=== PATIENT | male | born 1980 | race Caucasian/White ===

== ENCOUNTER 2017-07-23 12:41 | Emergency (ER) | payer BC ==
[~2017-07-23] VITALS: Ht 185.4 cm; Wt 92.0 kg
[2017-07-23 12:44] VITALS: Ht 185.4 cm; Wt 92.0 kg
[2017-07-23] MEDS ORDERED: GELATIN SPONGE 12-7MM ONE (12:54)
[2017-07-23 13:45] LABS: BASO % 0.4 %; BASO ABS # 0.04 K/uL (0-0.2); COMPLETE YES; EOS % 1.5 %; HEMATOCRIT 42.9 % (42-52); IG% 0.3 %; LYMPH % 23.9 %; LYMPH ABS # 2.14 K/uL (1.2-3.4); MEAN CELL VOLUME 89.2 fL (80-100); MEAN CORPUSCULAR HEMOGLOBIN 31.6 pg (25-34); MEAN CORPUSCULAR HGB CONC 35.4 g/dl (32-36); MEAN PLATELET VOLUME 10.4 fL (7.4-10.4); NEUT % 66.9 %; PLATELET COUNT 207 K/uL (130-400); RED BLOOD COUNT 4.81 M/uL (4.7-6.1); WHITE BLOOD COUNT 8.96 K/uL (4.8-10.8)
[2017-07-23 14:10] VITALS: BP 131/86; PULSE 81; TEMP 36.8; O2SAT 95
--- NOTE | 2017-07-23 16:28 | EMERGENCY ROOM VISIT NOTE ---
History Report prepared by Carlos: Darshana Mota Under the Supervision of: Nagi MedinaO. First contact with patient: 12:46 Chief Complaint: RECTAL BLEEDING Stated Complaint: RUPTURED HEMMRHOID, BLEEDING Nursing Triage Summary: worsening hemmroid bleeding like he is menstrating per pt over the past week History of Present Illness The patient is a 36 year old male who presents to the Emergency Room with complaints of intermittent rectal bleeding for the past 3 days. The patient has a history of hemorrhoids. He denies being constipated or straining to have a bowel movement recently. About a week ago he noticed some blood on the toilet paper when he would wipe after having a bowel movement. He denies any pain or other symptoms at that time. He has not had any blood in his stools. Three days ago he developed some pain and some increase in bleeding. He has been using Preparation H for his symptoms. The patient went hunting yesterday and was dragging a deer. He thinks that this exertion worsened his symptoms because since that time he has been having constant rectal bleeding. The blood is bright red. He is currently wearing one of his 's pads so that he does not bleed through his clothes. The patient reports some diarrhea. He denies headache, change in vision, fevers, chest pain, shortness of breath, nausea, vomiting, pain with urination, hematochezia, and melena. Source of History: patient Onset: 3 days ago Position: other (rectum) Quality: other (bleeding) Timing: intermittent Modifying Factors (Worsening): exertion Associated Symptoms: + diarrhea, No fevers, No headache, No chest pain, No SOB, No nausea, No vomiting, No melena, No hematochezia, No urinary symptoms Review of Systems See HPI for pertinent positives & negatives. A total of 10 systems reviewed and were otherwise negative. Past Medical & Surgical Medical Problems: (1) Esophageal reflux Family History Cancer Hypertension Kidney disease Kidney stones Social History Smoking Status: Never Smoker Alcohol Use: occasionally Marital Status: Housing Status: lives with family Occupation Status: employed Current/Historical Medications No Active Prescriptions or Reported Meds Allergies Coded Allergies: Lansoprazole (Verified Allergy, Unknown, rash, 07/23/17) Physical Exam Vital Signs Date Time Temp Pulse Resp B/P (MAP) Pulse Ox O2 Delivery O2 Flow Rate FiO2 07/23/17 14:10 36.8 81 18 131/86 95 Room Air 07/23/17 12:44 37.0 112 16 134/74 96 Physical Exam GENERAL: Sitting up in bed, alert, well appearing, well nourished, no distress, non-toxic EYE EXAM: normal conjunctiva. OROPHARYNX: no exudate, no erythema, lips, buccal mucosa, and tongue normal and mucous membranes are moist NECK: supple, no nuchal rigidity, no adenopathy, non-tender LUNGS: Clear to auscultation. Normal chest wall mechanics HEART: no murmurs, S1 normal and S2 normal ABDOMEN: abdomen soft, non-tender, normo-active bowel sounds, no masses, no rebound or guarding. RECTAL: External hemorrhoid with no active bleeding but obvious tear, clot in place. SKIN: no rashes and no bruising UPPER EXTREMITIES: upper extremities are grossly normal. LOWER EXTREMITIES: No pitting edema. NEURO EXAM: Normal sensorium Medical Decision & Procedures Laboratory Results 07/23/17 13:11 Red Blood Count 4.81, Mean Corpuscular Volume 89.2, Mean Corpuscular Hemoglobin 31.6, Mean Corpuscular Hemoglobin Concent 35.4, Mean Platelet Volume 10.4, Neutrophils (%) (Auto) 66.9, Lymphocytes (%) (Auto) 23.9, Monocytes (%) (Auto) 7.0, Eosinophils (%) (Auto) 1.5, Basophils (%) (Auto) 0.4, Neutrophils # (Auto) 5.99, Lymphocytes # (Auto) 2.14, Monocytes # (Auto) 0.63, Eosinophils # (Auto) 0.13, Basophils # (Auto) 0.04 Test 07/23/17 13:11 White Blood Count 8.96 K/uL (4.8-10.8) Red Blood Count 4.81 M/uL (4.7-6.1) Hemoglobin 15.2 g/dL (14.0-18.0) Hematocrit 42.9 % (42-52) Mean Corpuscular Volume 89.2 fL (80-100) Mean Corpuscular Hemoglobin 31.6 pg (25-34) Mean Corpuscular Hemoglobin Concent 35.4 g/dl (32-36) Platelet Count 207 K/uL (130-400) Mean Platelet Volume 10.4 fL (7.4-10.4) Neutrophils (%) (Auto) 66.9 % Lymphocytes (%) (Auto) 23.9 % Monocytes (%) (Auto) 7.0 % Eosinophils (%) (Auto) 1.5 % Basophils (%) (Auto) 0.4 % Neutrophils # (Auto) 5.99 K/uL (1.4-6.5) Lymphocytes # (Auto) 2.14 K/uL (1.2-3.4) Monocytes # (Auto) 0.63 K/uL (0.11-0.59) Eosinophils # (Auto) 0.13 K/uL (0-0.5) Basophils # (Auto) 0.04 K/uL (0-0.2) RDW Standard Deviation 38.6 fL (36.4-46.3) RDW Coefficient of Variation 11.9 % (11.5-14.5) Immature Granulocyte % (Auto) 0.3 % Immature Granulocyte # (Auto) 0.03 K/uL (0.00-0.02) Laboratory results per my review. ED Course ED COURSE: Vital signs were reviewed and showed tachycardic. The patients medical record was reviewed The above diagnostic studies were performed and reviewed. ED treatments and interventions as stated above. 1246: The patient was evaluated in room C7. A complete history and physical examination was performed. 1254: Surgifoam sponge applied topically 1358: Upon reevaluation, the patient is feeling better and resting comfortably. I discussed my findings with the patient and he understands and agrees with the treatment plan. Based on the patients age, coexisting illnesses, exam and lab findings the decision to treat as an outpatient was made. The patient remained stable while under my care. The patient appeared well at the time of discharge. Medical Decision Differential diagnoses includes but is not limited to gastritis, peptic ulcer disease, GERD, gallbladder disease, pancreatitis, small bowel obstruction, acute coronary syndrome, pericarditis, ischemic bowel, irritable bowel disease, irritable bowel syndrome, appendicitis, diverticulitis, malignancy, hernia, urinary tract infection, torsion, perforation, trauma, infectious. Patient is a 36-year-old male who has been having hemorrhoidal pain for the past several days. He is having diarrhea today and his pain completely resolved diagnosis large amount bleeding. On exam he does appear as though his hemorrhoid ruptured. No active bleeding upon presentation with the exception of small venous oozing. Surgifoam was placed along with 4 x 4's. No active bleeding on reevaluation. CBC was unremarkable. Patient has no other complaints. He was discharged to follow-up with PCP. Discussed with Pt concerning signs and symptoms to watch out for. Pt was instructed to follow up with their PCP and discussed with the patient their option to return to the ED at anytime for persistent or worsening symptoms. The appropriate anticipatory guidance and out-patient management, including indications for return to the emergency department, were explained at length to the patient and understood. Medication Reconcilliation Current Medication List: was personally reviewed by me Blood Pressure Screening Patient's blood pressure: Normal blood pressure Impression Primary Impression: External bleeding hemorrhoids Scribe Attestation The scribe's documentation has been prepared under my direction and personally reviewed by me in its entirety. I confirm that the note above accurately reflects all work, treatment, procedures, and medical decision making performed by me. Departure Information Dispostion Home / Self-Care Prescriptions No Active Prescriptions or Reported Meds Referrals Barry Khalil DO (PCP) Forms HOME CARE DOCUMENTATION FORM, IMPORTANT VISIT INFORMATION, WORK / SCHOOL INSTRUCTIONS Patient Instructions Bleeding Rectal, Hemorrhoids, My [facility] [employer] [place], Phenylephrine rectal cream or ointment Additional Instructions Please follow up with your primary care doctor with in the next 24 hours. Any worsening of your symptoms, please return to the ED immediately. This includes any fevers greater than 100.4, worsening pain, increased bleeding, unable to stop the bleeding or any other concerning signs or symptoms from your standpoint. You want to refrain from having constipation or diarrhea for the remainder of the week. Please refrain from straining.
== END 2017-07-23 14:16 | disposition home or self-care (01) ==
LOC: C.EDB 12:42 → C.EDC 14:16
DX: K64.4 Residual hemorrhoidal skin tags (principal); R19.7 Diarrhea, unspecified; Z82.49 Family history of ischemic heart disease and other diseases of the circulatory system; Z84.1 Family history of disorders of kidney and ureter